=== PATIENT | female | born 1955 | race Caucasian/White ===

== ENCOUNTER 2023-09-30 09:19 | Emergency (ER) | payer MEDICARE, SELFPAY ==
[2023-09-30] VITALS (15 sets, daily range): BP systolic 169–193; BP diastolic 96–113; PULSE 77–89; RESP 18; TEMP 36.5; O2SAT 92–97; BMI 18.8
--- NOTE | 2023-09-30 09:57 | XR_ITS ---
Final Report Patient: THOMAS BREWSTER Facility:?[facility] Patient ID:?[id number] Site Patient ID:?[id number]. Site :?[id number] Study:?XRay Cardiac 2V-09/30/2023 10:19:46 AM Ordering Physician:?DR. LAWRENCE Final Report: INDICATION: Weakness TECHNIQUE: Chest 2 views COMPARISON: None FINDINGS: Severe tortuosity of the descending thoracic aorta. 6.7 cm hiatal hernia. No pleural effusion. Degenerative changes. No vertebral body compression fracture. Scarring in the right lung apex. No consolidative density or CHF. IMPRESSION: No acute findings. Dictated by Brendan Wood MD @ 09/30/2023 10:36:04 AM (Electronic Signature)
[2023-09-30 10:19] LABS: Basophils Percent Auto 0.2 % (0.0-3.0); Eosinophils Percent Auto 0.6 % (0.0-7.0); Hematocrit 42.6 % (33.0-51.0); Hemoglobin* 13.8 gm/dL (12.0-16.0); Immature Granulocytes Pct Auto 0.2 %; Lymphocytes Percent Auto 6.8 % (20-44); Mean Corpuscular HGB Conc 32 gm/dL (32-36); Mean Corpuscular Hemoglobin 29 pg (26-34); Mean Corpuscular Volume 89 fL (80-100); Monocytes Percent Auto 6.6 % (0.0-11.0); Neutrophils Percent Auto 85.6 % (42.0-72.0); Platelet Count* 318 K/uL (140-440); RDW Coefficient of Variation % 12.9 % (11.5-15.5); Red Blood Count 4.77 m/uL (4.00-5.20); White Blood Count* 12.34 K/uL (4.50-11.00)
[2023-09-30 10:28] LABS: Lactate* 1.2 mmol/L (0.5-1.9)
[2023-09-30 10:31] LABS: Slide Review Reflex No
[2023-09-30 10:45] LABS: Chloride* 104 mmol/L (96-114)
[2023-09-30 10:46] LABS: Albumin* 3.4 g/dL (3.3-5.0); Sodium* 136 mmol/L (135-149)
[2023-09-30 10:47] LABS: Potassium* 3.3 mmol/L (3.6-5.1)
[2023-09-30 10:49] LABS: Alanine Aminotransferase* 16 U/L (4-35); Alkaline Phosphatase* 119 U/L (40-150); Anion Gap 9 mEq/L (7-15); Aspartate Amino Transferase* 29 U/L (12-35); Bilirubin Direct* 0.2 mg/dL (0.0-0.5); Bilirubin Total* 0.6 mg/dL (0.1-1.5); Blood Urea Nitrogen* 19 mg/dL (7-30); Carbon Dioxide* 23 mmol/L (20-32); Creatinine* 0.6 mg/dL (0.5-1.5); Est. Creatinine Clearance* 46.91; Estimated Glomerular Filt Rate 98 ml/min; Total Protein* 6.4 g/dL (6.0-8.3)
[2023-09-30 10:50] LABS: Calcium* 8.8 mg/dL (8.4-10.6); Glucose* 117 mg/dL (60-115); Magnesium* 1.9 mg/dL (1.5-2.6)
[2023-09-30 10:52] LABS: C Reactive Protein* 3.6 mg/dL (0.5-1.0)
--- NOTE | 2023-09-30 10:55 | ED_ITS ---
HPI - General Adult General Chief complaint: Weakness Stated complaint: weakness Time Seen by Provider: 09/30/23 09:26 Source: patient and family Mode of arrival: ambulatory Limitations: no limitations History of Present Illness HPI narrative: 68-year-old female presenting today with concerns about swelling of her hands and ankles. Swelling of the hands have been present for a couple of months. Swelling of the ankles have been present for a couple of weeks. She denies any chest pain or shortness of breath. She denies difficulty lying down at night. She states that she does not see a physician and does not take care of herself. She smokes a half pack cigarettes per day and has for many years. Is not currently taking any medications. She denies fevers or chills. No nausea or vomiting. States that she has lost a considerable amount of weight over the last 5 years, unclear how much weight that is. But does state that she eats well. Per her daughter, patient is withdrawn and does not like to participate in any family tibia these. Patient lives with her daughter, her son, and her daughter's children. Family is concerned about her mood in general well being. She denies any urinary symptoms such as frequency, urgency or dysuria. No blood in her urine. She denies any blood in her stools. Related Data Previous Rx's Medication Instructions Recorded hydrochlorothiazide 25 mg tablet 25 mg PO DAILY #30 tabs 09/30/23 Allergies Allergy/AdvReac Type Severity Reaction Status Date / Time No Known Drug Allergies Allergy Verified 09/30/23 09:29 Review of Systems Status of ROS: Reports: 10 or more systems reviewed and unremarkable except as noted in History and below [facility] Social History Smoking Status: Current every day smoker What tobacco products do you use: cigarettes Smoking packs per day: 0.5 Smoking cigarettes per day: 10.0 How often do you have a drink containing alcohol: never How often do you have six or more drinks on one occasion: Never AUDIT-C Alcohol total score: 0 Non-prescribed substance use: denies use service: No Exam Narrative: Exam Narrative: Blood pressure is quite elevated at 193/105. Thin patient in no acute distress, looks significantly older than stated age.. Alert and oriented. Answers questions appropriately. Mood in appropriate, affect is flat. Thoughts are goal oriented and rational. No tangential or magical thinking noted. Patient speaks in full sentences without needing to catch her breath. Speech is not slurred or pressured. Patient has poor hygiene. She has significant dirt between her toes. HEENT: Normocephalic atraumatic. Pupils are equally round reactive to light. Extraocular muscles are intact. Conjunctivae are moist without any icterus noted. Moist mucous membranes. Posterior pharynx is normal. Neck is soft without any lymphadenopathy or thyromegaly. No masses are appreciated. She does have a growth on the left gnosticist area. Cardiovascular: Heart is regular rate and rhythm S1 and S2 are present without any murmurs. Lungs: Clear to auscultation bilaterally no wheezes rhonchi or rales are appreciated. Patient takes deep breaths without any discomfort. Abdomen: Soft and nontender nondistended with normal bowel sounds. No guarding or rebound. No masses or organomegaly appreciated. Extremities: Bilateral lower extremities show trace edema. Normal DP and PT pulses. She does have swelling of both hands and all fingers. Normal radial pulses bilaterally. Normal capillary refill bilateral. Hands are not tender. Skin: Well perfused without any obvious rashes. Const: Vital Signs, click to edit/add: Vital Signs - 24 hr 09/30/23 09:25 09/30/23 09:57 09/30/23 10:23 Temperature 97.7 F Pulse Rate 77 Pulse Rate [Right Pulse Oximeter] 88 Respiratory Rate 18 Blood Pressure Blood Pressure [Ri ght Upper Arm] 193/105 H Pulse Oximetry 97 95 95 Oxygen Delivery Me thod Room Air 09/30/23 10:30 09/30/23 10:32 09/30/23 10:45 Temperature Pulse Rate 81 80 77 Pulse Rate [Right Pulse Oximeter] Respiratory Rate Blood Pressure 169/99 H Blood Pressure [Ri ght Upper Arm] Pulse Oximetry 93 95 92 Oxygen Delivery Me thod 09/30/23 11:00 09/30/23 11:02 09/30/23 11:15 Temperature Pulse Rate 84 82 81 Pulse Rate [Right Pulse Oximeter] Respiratory Rate Blood Pressure 177/110 H Blood Pressure [Ri ght Upper Arm] Pulse Oximetry 93 92 93 Oxygen Delivery Me thod Course Course ED Course: Given the patient has not seen a doctor in many years we did do a more thorough workup today including an EKG which was read by me, showed normal sinus rhythm with a pulse of 81. Chest x-ray, read by me, did not show any acute pathology. Per radiologic over- read showed severe tortuosity of the descending thoracic aorta and a 6.7 cm hiatal hernia. WBC slightly elevated. Normal hemoglobin and platelet count. Potassium slightly low at 3.3. Normal BUN and creatinine. Normal magnesium, LFTs. Troponin less than 0.01. CRP slightly elevated at 3.6. BNP normal at 169. TSH normal at 1.24. UA did have 1+ ketones, trace blood and trace leukocyte esterase. We also did a DEC assessment given the family's concern about the patient's mood. Her deck patient is not homicidal or suicidal. She does want to get her help back in shape and denies the need for any mental health services at this time. Vital Signs Vital signs: Initial Vital Signs Temperature 97.7 F 09/30/23 09:25 Temperature Source Temporal Artery Scan 09/30/23 09:25 Pulse Rate 88 09/30/23 09:25 Pulse Rhythm Regular 09/30/23 09:25 Respiratory Rate 18 09/30/23 09:25 Blood Pressure 193/105 H 09/30/23 09:25 Blood Pressure Mean 134 H 09/30/23 09:25 Blood Pressure Position Sitting 09/30/23 09:25 Pulse Oximetry 97 09/30/23 09:25 Oxygen Delivery Method Room Air 09/30/23 09:25 Vital Signs Temperature 97.7 F 09/30/23 09:25 Pulse Rate 88 09/30/23 09:25 Respiratory Rate 18 09/30/23 09:25 Blood Pressure 193/105 H 09/30/23 09:25 Pulse Oximetry 97 09/30/23 09:25 Oxygen Delivery Method Room Air 09/30/23 09:25 Temperature 97.7 F 09/30/23 09:25 Pulse Rate 81 09/30/23 11:15 Respiratory Rate 18 09/30/23 09:25 Blood Pressure 177/110 H 09/30/23 11:02 Pulse Oximetry 93 09/30/23 11:15 Oxygen Delivery Method Room Air 09/30/23 09:25 Medical Decision Making MDM Narrative Medical decision making narrative: 68-year-old female with no recent medical care, significantly elevated blood pressure, swelling of the extremities, facial lesion. At this time work will go ahead and start her on hydrochlorothiazide. She is instructed to establish care with primary care provider to discuss her symptoms as there are multiple potential causes of her hand swelling at this time. We also discussed having her skin lesion biopsied. Patient and family were in agreement and had no other questions. Lab Data Lab results reviewed: Yes I reviewed the patient's lab results Labs: Lab Results 09/30/23 09/30/23 Range/Units 10:09 11:35 WBC 12.34 H (4.50-11.00) K/uL RBC 4.77 (4.00-5.20) m/uL Hgb 13.8 (12.0-16.0) gm/dL Hct 42.6 (33.0-51.0) % MCV 89 (80-100) fL MCH 29 (26-34) pg MCHC 32 (32-36) gm/dL RDW Coeff of Marcus 12.9 (11.5-15.5) % Plt Count 318 (140-440) K/uL Neut % (Auto) 85.6 H (42.0-72.0) % Lymph % (Auto) 6.8 L (20-44) % Preston % (Auto) 6.6 (0.0-11.0) % Eos % (Auto) 0.6 (0.0-7.0) % Baso % (Auto) 0.2 (0.0-3.0) % Neut # (Auto) 10.60 H (1.7-7.0) K/uL Lymph # (Auto) 0.80 L (0.90-2.90) K/uL Preston # (Auto) 0.80 (0.00-0.90) K/UL Eos # (Auto) 0.10 (0.00-0.50) K/uL Baso # (Auto) 0.00 (0.00-0.30) K/uL Abs Immat Gran (auto) 0.00 (0.00-0.30) K/uL Imm/Tot Granulo (auto) 0.2 % Sodium 136 (135-149) mmol/L Potassium 3.3 L (3.6-5.1) mmol/L Chloride 104 (96-114) mmol/L Carbon Dioxide 23 (20-32) mmol/L Anion Gap 9 (7-15) mEq/L BUN 19 (7-30) mg/dL Creatinine 0.6 (0.5-1.5) mg/dL Estimated Creat Clear 46.91 Estimated GFR 98 ml/min Glucose 117 H (60-115) mg/dL Lactate 1.2 (0.5-1.9) mmol/L Calcium 8.8 (8.4-10.6) mg/dL Magnesium 1.9 (1.5-2.6) mg/dL Total Bilirubin 0.6 (0.1-1.5) mg/dL Direct Bilirubin 0.2 (0.0-0.5) mg/dL AST 29 (12-35) U/L ALT 16 (4-35) U/L Alkaline Phosphatase 119 (40-150) U/L Troponin I < 0.01 L (0.01-0.04) ng/mL C-Reactive Protein 3.6 H (0.5-1.0) mg/dL NT-Pro-B Natriuret Pep 169 pg/mL Total Protein 6.4 (6.0-8.3) g/dL Albumin 3.4 (3.3-5.0) g/dL TSH 1.240 (0.270-4.20) uIU/mL Urine Color Yellow (Yellow) Urine Appearance Clear (Clear) Urine pH 6.5 (5.0-8.5) Ur Specific Loomis 1.020 (1.000-1.030) Urine Protein Negative (Negative) Urine Glucose (UA) Negative (Negative) Urine Ketones 1+ A (Negative) Urine Blood Trace-intact A (Negative) Urine Nitrite Negative (Negative) Urine Bilirubin Negative (Negative) Urine Urobilinogen 1.0 (0.2-1.0) Ur Leukocyte Esterase Trace A (Negative) Urine RBC 2-5 A (0-2) Urine WBC 5-10 A (0-5) Ur Squamous Epith Cells Few (None-Few) Amorphous Sediment Many A (None) Urine Bacteria Few A (None) Ethyl Alcohol < 0.01 L (0.01-0.03) % Imaging Data Chest x-ray: Attestation: I have reviewed the pertinent imaging results. Discharge Plan Discharge Clinical Impression: Skin lesion of face, Hypertension, Swelling of extremity Patient Disposition: Home, Self-Care Condition: Stable Additional Instructions: No immediate reason was found for the swelling of you hands today. You must establish care with a primary care provider. We will start you on a blood pressure medication today, this will need to be continued by her primary care provider. Also recommend they have your primary care provider biopsy the lesion on your face. Prescriptions: New hydrochlorothiazide 25 mg tablet 25 mg PO DAILY Qty: 30 0RF Follow Up/Referrals: Provider,Not a Local [Primary Care Provider] - Stand Alone Forms: [employer] Info Instructions
[2023-09-30 11:02] LABS: Ethanol* < 0.01 % (0.01-0.03); NT Pro B Type NatriureticPept* 169 pg/mL; Troponin I* < 0.01 ng/mL (0.01-0.04)
[2023-09-30 11:43] LABS: Appearance Urine Clear (Clear); Bilirubin Urine Negative (Negative); Blood Urine Trace-intact (Negative); Color Urine Yellow (Yellow); Glucose Urine Negative (Negative); Ketones Urine 1+ (Negative); Leukocyte Esterase Urine Trace (Negative); Nitrite Urine Negative (Negative); Protein Urine Negative (Negative); pH Urine 6.5 (5.0-8.5)
[2023-09-30 11:50] LABS: Amorphous Sediment Urine Many; Bacteria Urine Few; Squamous Epithelial Cell Urine Few (None-Few)
== END 2023-09-30 12:28 | disposition home or self-care (01) ==
PROVIDERS: Emergency Provider Family Medicine
DX: L98.9 Disorder of the skin and subcutaneous tissue, unspecified (principal); I10 Essential (primary) hypertension; R22.33 Localized swelling, mass and lump, upper limb, bilateral
CPT/HCPCS: 36415; 71046; 80048; 80076; 81001; 82077; 83605; 83735; 83880; 84443; 84484; 85025; 86140; 87086; 93005; 94761; 99284; 99285